=== PATIENT | female | born 1960 | race Caucasian/White ===

== ENCOUNTER → 2019-03-13 | Outpatient (CLI) | payer MEDICARE, MEDICAID ==
[~2019-03-13] MED LIST: COMBIVENT INH; LEVAQUIN 500 M500 MG PO; NORCO 5-325 TA1 EACH PO; PREDNISONE 20 M20 M1 PO; PREDNISONE50 MG PO; SPIRIVA INH; SYMBICORT160 MCG/4. INH; VENTOLIN HFA 1818 GM
== END ==
LOC: M.ULTRA 08:57
DX: R10.9 Unspecified abdominal pain (principal)

== ENCOUNTER → 2019-10-30 | Outpatient (CLI) | payer MEDICARE, MEDICAID | LOC: M.ULTRA 11:00 | DX: I82.812 Embolism and thrombosis of superficial veins of left lower extremity (principal); I82.412 Acute embolism and thrombosis of left femoral vein; M25.475 Effusion, left foot ==

== ENCOUNTER → 2021-01-28 | Outpatient (CLI) | payer MEDICARE, MEDICAID | LOC: M.ULTRA 11:30 | PROVIDERS: ATTEND Nurse Practitioner Family | DX: J98.4 Other disorders of lung (principal); R60.0 Localized edema; S22.008A Other fracture of unspecified thoracic vertebra, initial encounter for closed fracture; X58.XXXA Exposure to other specified factors, initial encounter; Y93.89 Activity, other specified; Y92.89 Other specified places as the place of occurrence of the external cause; Y99.8 Other external cause status ==